=== PATIENT | female | born 1935 | race Caucasian/White ===

== ENCOUNTER 2018-06-11 13:59 | Emergency (ER) | payer MEDICARE ==
[2018-06-11] MEDS ORDERED: ONDANSETRON HCL IV 4 MG/2 ML VIAL IV ONE (14:37)
[2018-06-11] MEDS ORDERED: 0.9% SODIUM CHLORIDE 250ML BAG IV ONE (14:37)
[2018-06-11] MEDS ORDERED: MORPHINE SULFATE 10 MG/ML VIAL IVP ONE ×3 (14:38→18:38)
[2018-06-11 14:58] LABS: HEMATOCRIT 45.3 % (35.0-47.0); HEMOGLOBIN 15.1 gm/dl (11.6-16.0); MEAN CELL VOLUME 82.4 fl (81-97); MEAN CORPUSCULAR HGB CONC 33.3 g/dl (32-36); MEAN PLATELET VOLUME 8.9 fl (7.4-10.4); PLATELET COUNT 382 K/uL (130-400); RED CELL DISTRIBUTION WIDTH 14.1 % (11.5-14.5); WHITE BLOOD COUNT W/O DIFF 8.6 K/uL (4.2-12.2)
[2018-06-11 15:07] LABS: MEAN CORPUSCULAR HEMOGLOBIN 27.4 pg (27-33)
[2018-06-11 15:14] LABS: BLOOD UREA NITROGEN 15 mg/dL (8-23); CREATININE 0.4 mg/dL (0.5-0.9); EST GLOMERULAR FILTRATION RATE > 60 mL/min
[2018-06-11 15:15] LABS: LIPASE 23 U/L (13-60); TOTAL PROTEIN 7.2 g/dL (6.6-8.7)
[2018-06-11 15:17] LABS: GLUCOSE,RANDOM 112 mg/dL (74-109)
[2018-06-11 15:19] LABS: ALB/GLOB RATIO 1.1 (1.1-1.8); ALBUMIN 3.8 g/dL (4.0-5.0); ALKALINE PHOSPHATASE 76 U/L (35-104); ALT/SGPT 16 U/L (<33); AST/SGOT 23 U/L (10.0-35.0)
--- NOTE | 2018-06-11 15:46 | Emergency Department Record ---
History of Present Illness - General Chief Complaint: Abdominal Pain Stated Complaint: ABD PAIN Time Seen by Provider: 06/11/18 14:26 Source: Patient Mode of Arrival: Ambulatory Limitations: No limitations - History of Present Illness Initial Comments: pt has had rlq pain since 5:30 am that is constant. nothing makes better or worse. she has no n/v/c/d. MD Complaint: Abdominal pain Onset/Timin -: Hour(s) Location: RUQ, RLQ Radiation: None Migration to: No migration Severity scale (1-10): 10 Quality: Sharp Consistency: Constant Improves With: Nothing Worsens With: Nothing Associated Symptoms: Denies other symptoms - Related Data Patient : No Home Medications Medication Instructions Recorded Confirmed Last Taken No Home Med [NO HOME MEDS] 06/11/18 06/11/18 Unknown Allergies Allergy/AdvReac Type Severity Reaction Status Date / Time codeine AdvReac Mild VOMITING Unverified 11/15/17 14:17 meperidine HCl [From Demerol] AdvReac Mild VOMITING Unverified 11/15/17 14:17 Travel Screening - Travel/Exposure Within Last 30 Days Have you traveled within the last 30 days?: No Review of Systems Reviewed: No additional complaints except as noted below Constitutional: Reports: As per HPI. Denies: Chills, Fever, Malaise, Night sweats, Weakness, Weight change Eyes: Reports: As per HPI. Denies: Eye discharge, Eye pain, Photophobia, Vision change ENT: Reports: As per HPI. Denies: Congestion, Dental pain, Ear pain, Epistaxis , Hearing loss, Throat pain Respiratory: Reports: As per HPI. Denies: Cough, Dyspnea, Hemoptysis, Stridor, Wheezes Cardiovascular: Reports: As per HPI. Denies: Arrhythmia, Chest pain, Dyspnea on exertion, Edema, Murmurs, Orthopnea, Palpitations, Paroxysmal nocturnal dyspnea, Rheumatic Fever, Syncope Endocrine: Reports: As per HPI. Denies: Fatigue, Heat or cold intolerance, Polydipsia, Polyuria Gastrointestinal: Reports: As per HPI, Abdominal pain. Denies: Constipation, Diarrhea, Hematemesis, Hematochezia, Melena, Nausea, Vomiting Genitourinary: Reports: As per HPI. Denies: Abnormal menses, Discharge, Dyspareunia, Dysuria, Frequency, Hematuria, Incontinence, Retention, Urgency Musculoskeletal: Reports: As per HPI. Denies: Arthralgia, Back pain, Gout, Joint swelling, Myalgia, Neck pain Skin: Reports: As per HPI. Denies: Bruising, Change in color, Change in hair/ nails, Lesions, Pruritus, Rash Neurological: Reports: As per HPI. Denies: Abnormal gait, Confusion, Headache, Numbness, Paresthesias, Seizure, Tingling, Tremors, Vertigo, Weakness Psychiatric: Reports: As per HPI. Denies: Anxiety, Auditory hallucinations, Depression, Homicidal thoughts, Suicidal thoughts, Visual hallucinations Hematological/Lymphatic: Reports: As per HPI. Denies: Anemia, Blood Clots, Easy bleeding, Easy bruising, Swollen glands Past Medical History - SOCIAL HISTORY Smoking Status: Former smoker Alcohol Use: None Drug Use: None - RESPIRATORY Hx Respiratory Disorders: No - CARDIOVASCULAR Hx Cardio Disorders: No - NEURO Hx Neuro Disorders: No - GI Hx GI Disorders: No - Hx Genitourinary Disorders: No - ENDOCRINE Hx Endocrine Disorders: No - MUSCULOSKELETAL Hx Musculoskeletal Disorders: No - PSYCH Hx Psych Problems: No - HEMATOLOGY/ONCOLOGY Hx Hematology/Oncology Disorders: No Family Medical History Any Significant Family History?: No Physical Exam - General General Appearance: Alert, Oriented x3, Cooperative, Mild distress - Head Head exam: Normal inspection - Eye Eye exam: Normal appearance, PERRL, EOMI Pupils: Normal accommodation - ENT ENT exam: Normal exam, Mucous membranes moist, Normal external ear exam, Normal orophraynx Ear exam: Normal external inspection. negative: External canal tenderness Nasal Exam: Normal inspection. negative: Discharge, Sinus tenderness Mouth exam: Normal external inspection, Tongue normal Teeth exam: Normal inspection. negative: Dental caries Throat exam: Normal inspection. negative: Tonsillar erythema, Tonsillar exudate - Neck Neck exam: Normal inspection, Full ROM. negative: Tenderness - Respiratory Respiratory exam: Normal lung sounds bilaterally. negative: Respiratory distress - Cardiovascular Cardiovascular Exam: Regular rate, Normal rhythm, Normal heart sounds - GI/Abdominal GI/Abdominal exam: Soft, Normal bowel sounds, Tenderness (rlq) - Rectal Rectal exam: Deferred - exam: Deferred - Extremities Extremities exam: Normal inspection, Full ROM, Normal capillary refill. negative: Tenderness - Back Back exam: Reports: Normal inspection, Full ROM. Denies: Muscle spasm, Rash noted, Tenderness - Neurological Neurological exam: Alert, CN II-XII intact, Normal gait, Oriented X3 - Psychiatric Psychiatric exam: Normal affect, Normal mood - Skin Skin exam: Dry, Intact, Normal color, Warm Course Vital Signs 06/11/18 14:09 Temperature 97.9 F Pulse Rate 71 Respiratory 20 Rate Blood Pressure 169/83 Pulse Ox 96 Medical Decision Making - Lab Data Result diagrams: 06/11/18 14:20 06/11/18 14:20 Lab Results 06/11/18 06/11/18 Range/Units 14:20 14:20 WBC 8.6 (4.2-12.2) K/uL RBC 5.50 H (3.80-5.40) M/uL Hgb 15.1 (11.6-16.0) gm/dl Hct 45.3 (35.0-47.0) % MCV 82.4 (81-97) fl MCH 27.4 (27-33) pg MCHC 33.3 (32-36) g/dl RDW 14.1 (11.5-14.5) % Plt Count 382 (130-400) K/uL MPV 8.9 (7.4-10.4) fl Eosinophils % Not Reportable Basophils % Not Reportable Sodium 138 (136-145) mmol/L Potassium 4.3 (3.4-4.5) mmol/L Chloride 100 (98-107) mmol/L Carbon Dioxide 26.0 (22-29) mmol/L Anion Gap 12.0 (7-16) BUN 15 (8-23) mg/dL Creatinine 0.4 L (0.5-0.9) mg/dL Estimated GFR > 60 mL/min Random Glucose 112 H (74-109) mg/dL Calcium 9.4 (8.8-10.2) mg/dL Total Bilirubin 0.30 (0.2-1.0) mg/dL AST 23 (10.0-35.0) U/L ALT 16 (<33) U/L Alkaline Phosphatase 76 (35-104) U/L Total Protein 7.2 (6.6-8.7) g/dL Albumin 3.8 L (4.0-5.0) g/dL Globulin 3.4 (1.4-4.8) gm/dL Albumin/Globulin Ratio 1.1 (1.1-1.8) Lipase 23 (13-60) U/L Disposition Disposition: Transfer Clinical Impression: SBO (small bowel obstruction) Ovarian cyst Qualifiers: Laterality: right Qualified Code(s): N83.201 - Unspecified ovarian cyst, right side Pneumonia Qualifiers: Pneumonia type: due to unspecified organism Laterality: bilateral Lung location : lower lobe of lung Qualified Code(s): J18.1 - Lobar pneumonia, unspecified organism Disposition: Acute Care Hospital Transfer Transfer To: [facility] Reason For Transfer: needs surgeon Accepting Physician: manuel hernandez and ministerio Time Discussed w/Accepting Physician: 18:59 Quality - Quality Measures Quality Measures: N/A - Blood Pressure Screening Does Patient Have Any of the Following: No Blood Pressure Classification: Pre-Hypertensive BP Reading Systolic Measurement: 169 Diastolic Measurement: 83 Screening for High Blood Pressure: < Pre-Hypertensive BP, F/U Documented > [ [id number]] Pre-Hypertensive Follow-up Interventions: Follow-up with rescreen every year.
[2018-06-11 16:55] LABS: URINE APPEARANCE CLEAR; URINE BILIRUBIN NEGATIVE (NEGATIVE); URINE BLOOD SMALL (NEGATIVE); URINE COLOR YELLOW; URINE GLUCOSE (UA) NEGATIVE (NEGATIVE); URINE KETONE TRACE (NEGATIVE); URINE LEUKOCYTE ESTERASE LARGE (NEGATIVE); URINE NITRITE NEGATIVE (NEGATIVE)
[2018-06-11 17:03] LABS: URINE BACTERIA 4+; URINE EPITHELIAL CELLS 0 - 2 (FEW); URINE WBC 0 - 2 (0-2/hpf)
[2018-06-11] MEDS ORDERED: ONDANSETRON HCL IV 4 MG/2 ML VIAL IVP ONE (17:18)
[2018-06-11] MEDS ORDERED: CIPROFLOXACIN LACTATE/D5W 400 MG/200 ML BAG IVPB ONE (18:44)
--- NOTE | 2018-06-14 11:29 | CT SCAN REPORT ---
EXAM: CT OF THE ABDOMEN AND PELVIS WITH CONTRAST HISTORY: RIGHT LOWER QUADRANT ABDOMINAL PAIN FOR TWELVE HOURS. TECHNIQUE: Following oral and intravenous contrast administration, helical CT examination of the abdomen and pelvis was performed including delayed images through the kidneys with 100 ml of Omnipaque 300 utilized. Comparison: CT angiogram of the chest dated 01/14/12. FINDINGS: Multifocal opacities are scattered within the lung bases, the majority of which have a nodular appearance and many have ill defined margins. The largest area of confluent opacity is noted in the posterolateral right lower lobe with a few air bronchograms within. This measures 4.5 x 2.3 cm. Diagnostic considerations include multifocal inflammatory lesions such as septic emboli. Multifocal pneumonia could also have this appearance. Neoplasm is less likely. Infarcts are also less likely. No pleural or pericardial effusion. The heart is not enlarged. The gallbladder is surgically absent. There is mild prominence of the central biliary tree redemonstrated likely relating to a physiologic response to surgical absence of the gallbladder. No suspicious focal lesion demonstrated within the liver, spleen, pancreas, and adrenal glands. 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 A few too small to characterize hypodense lesions are noted within the right kidney. These are nonspecific, but likely cysts. There is a well circumscribed fluid density mass within the medial lower pole of the left kidney measuring 1.9 x 2.1 cm. This is consistent with a cyst. The left kidney is otherwise normal in appearance. No intraabdominal nor retroperitoneal lymphadenopathy. Mild diffuse atherosclerosis without focal aneurysmal dilatation of the abdominal aorta nor iliac arteries. There is a large simple appearing cystic structure in the right adnexa measuring 9.6 x 7.8 cm. The etiology of this is uncertain. This may represent a benign ovarian cyst though cystic neoplasm is not excluded. It does not have suspicious features. No other evidence of pelvic mass nor lymphadenopathy. No intrinsic urinary bladder abnormality is seen. There is diverticulosis throughout the colon most pronounced distally where it is moderate to advanced. No definite diverticulitis. An IVC filter is in place with its superior tip at the level of the renal veins. There are several fluid and gas distended small bowel loops present several of which are borderline dilated. No definite sharp zone of transition is seen though the distal ileum is normal in caliber. This could relate to early or partial small bowel obstruction. There is mild haziness of mesenteric fat in the right mid to lower abdomen of indeterminate etiology. This may be inflammatory. The appendix is visualized and normal in appearance. No free intraperitoneal air. No lytic or blastic bone lesion. IMPRESSION: 1. MULTIFOCAL OPACITIES WITHIN THE LUNG BASES, MANY OF WHICH HAVE A NODULAR APPEARANCE AND MANY ARE ILL DEFINED. AN INFLAMMATORY/INFECTIOUS PROCESS SUCH SEPTIC EMBOLI IS THE MOST LIKELY ETIOLOGY. NEOPLASM IS LESS LIKELY. 2. STATUS POST CHOLECYSTECTOMY. IVC FILTER IN PLACE. 3. LARGE SIMPLE APPEARING CYSTIC STRUCTURE IN THE RIGHT ADNEXA MEASURING 9.6 X 7.8 CM. BENIGN OVARIAN CYST IS FAVORED THOUGH CYSTIC NEOPLASM IS NOT EXCLUDED. 4. THERE ARE SEVERAL FLUID AND GAS DISTENDED PROXIMAL AND MID SMALL BOWEL LOOPS , SEVERAL OF WHICH ARE BORDERLINE DILATED. WHILE NO DEFINITE SHARP ZONE OF TRANSITION IS SEEN, THERE IS POSSIBLE TRANSITION IN THE RIGHT ABDOMEN AND THE DISTAL ILEUM IS NORMAL IN CALIBER. THIS MAY REPRESENT EARLY/PARTIAL SMALL BOWEL OBSTRUCTION. THERE IS ASSOCIATED MINOR MESENTERIC FAT STRANDING/VASCULAR CONGESTION IN THE RIGHT MID TO LOWER ABDOMEN. 5. NORMAL APPENDIX. 6. BILATERAL RENAL CYSTS. 7. HEALED GRANULOMATOUS DISEASE. JOB NUMBER: [id number] [facility]
== END 2018-06-11 19:24 | disposition short-term general hospital (02) ==
LOC: ER 13:59
DX: K56.609 Unspecified intestinal obstruction, unspecified as to partial versus complete obstruction (principal); J18.1 Lobar pneumonia, unspecified organism; N83.201 Unspecified ovarian cyst, right side; R11.2 Nausea with vomiting, unspecified; Z87.891 Personal history of nicotine dependence
CPT/HCPCS: 99285 ×2; 96376; 96365; 96375; 83605; 83690; 80053; 81001; 85027; 74177; Q9967; J0744; J2405; J2270